=== PATIENT | male | born 1955 | race African-American/Black ===

== ENCOUNTER 2021-02-10 11:05 | Inpatient (IN) | payer OTHER ==
[~2021-02-10] VITALS: Ht 182.9 cm; Wt 160.6 kg
[2021-02-10] VITALS (24 sets, daily range): BP systolic 101–172; BP diastolic 62–130
[~2021-02-10 11:05] MED LIST: GLIPIZIDE; METFORMIN
[2021-02-10] MEDS ORDERED: SODIUM CHLORIDE 0.9% 1,000 ML IV ONE (11:15)
[2021-02-10] MEDS ORDERED: IPRATROPIUM BROMIDE (0.02%) 0.5MG/2.5ML NEB HHN STA (11:20)
[2021-02-10 11:45] LABS: HEMATOCRIT. 35.7 % (42.0-52.0); HEMOGLOBIN. 12.3 g/dL (14.0-18.0); MEAN CORPUSCULAR HEMOGLOBIN 33.6 pg (28.0-32.0); MEAN PLATELET VOLUME 7.8 fl (7.4-10.4); PLATELET 329 x1000/uL (130-400); RED BLOOD CELL COUNT 3.65 mill/uL (4.7-6.1); RED CELL DISTRIBUTION WIDTH 19.5 % (11.6-14.6)
[2021-02-10] MEDS ORDERED: LEVOFLOXACIN 750MG PREMIX 150 ML IV ONE (11:45)
[2021-02-10 11:47] LABS: CHLORIDE 98 mEq/L (98-107)
[2021-02-10 11:51] LABS: ETHANOL BLOOD < 10 mg/dL
[2021-02-10] MEDS ORDERED: ACETAMINOPHEN 650MG SUPP PR ONE (12:00)
[2021-02-10 12:29] LABS: PLATELET ESTIMATE NORMAL
[2021-02-10] MEDS ORDERED: SODIUM CHLORIDE 0.9% 1000ML BAG (SEPSIS BOLUS) IV ONE (13:30)
[2021-02-10 15:31] LABS: CLARITY URINE CLEAR (CLEAR); COLOR URINE YELLOW (YELLOW); KETONES URINE 1+ (NEGATIVE); LEUKOCYTE ESTERASE URINE NEGATIVE (NEGATIVE); NITRITE URINE NEGATIVE (NEGATIVE); OCCULT BLOOD URINE TRACE (NEGATIVE); PH URINE 6.5 (4.5-8.0); PROTEIN URINE 1+ (NEGATIVE); SPECIFIC GRAVITY URINE 1.023 (1.005-1.030)
[2021-02-10 15:46] LABS: *AMPHETAMINES SCREEN URINE NEGATIVE (NEGATIVE); *BARBITURATES SCREEN URINE NEGATIVE (NEGATIVE); *BENZODIAZEPINES SCREEN URINE NEGATIVE (NEGATIVE); *COCAINE SCREEN URINE NEGATIVE (NEGATIVE); CANNABINOID URINE SCREEN PRESUMTIVE POSITIVE (NEGATIVE); METHADONE URINE SCREEN NEGATIVE (NEGATIVE); OPIATES URINE SCREEN NEGATIVE (NEGATIVE); PHENCYCLIDINE URINE SCREEN NEGATIVE (NEGATIVE)
[2021-02-10 16:02] LABS: D-DIMER 9.2 mg/L FEU (<0.50); INR 1.2; PROTHROMBIN TIME 12.4 sec (9.6-11.0)
[2021-02-10] MEDS ORDERED: CLONIDINE 0.1MG TABLET PO PRN (16:15)
[2021-02-10] MEDS ORDERED: ENOXAPARIN 40MG/0.4ML SYR SUBCUT SCH (16:15)
[2021-02-10] MEDS ORDERED: ONDANSETRON HCL 4MG/2ML INJ IV PRN (16:15)
[2021-02-10] MEDS ORDERED: CEFTRIAXONE 1 G PREMIX 50 ML IV SCH (16:15)
[2021-02-10] MEDS ORDERED: LORAZEPAM 2MG/ML CPJ IV PRN (16:15)
[2021-02-10] MEDS ORDERED: HYDROMORPHONE HCL/PF 2MG/ML CPJ IV PRN (16:15)
[2021-02-10] MEDS ORDERED: GUAIFENESIN 200MG/10ML SUGAR FREE UDC PO PRN (16:15)
[2021-02-10] MEDS ORDERED: MAGNESIUM/ALUMINUM HYDROXIDE/SIMETHICONE 30ML UDC PO PRN (16:15)
[2021-02-10] MEDS ORDERED: DOCUSATE SODIUM 100MG CAPSULE PO PRN (16:15)
[2021-02-10] MEDS ORDERED: ACETAMINOPHEN 325MG TABLET PO PRN (16:15)
[2021-02-10 16:46] LABS: BG BASE EXCESS -5.9 mmol/L (-2.0-2.0); BG DEOXYHEMOGLOBIN 5.3 % (0.0-5.0); BG FRACTION INSPIRED OXYGEN 50; BG HCO3 ACT 17.6 mmol/L (22.0-26.0); BG METHEMOGLOBIN 0.2 % (0.0-1.5); BG OXYGEN SATURATION 94.7 % (92.0-98.5); BG OXYHEMOGLOBIN 94.5 % (94.0-97.0); BG PCO2 28.8 mmHg (35.0-45.0); BG PH 7.404 (7.350-7.450); BG PO2 75.8 mmHg (75.0-100.0); BG SAMPLE SITE LEFT RADIAL; BG VENT MODE MASK - BIPAP
[2021-02-10] MEDS ORDERED: CEFTRIAXONE 1,000 MG in DEXTROSE 5% WATER 50 ML IV SCH (18:00)
[2021-02-10] MEDS ORDERED: PHENYLEPHRINE 100 MG in DEXT 5% WATER 240 ML IV PRN (18:00)
[2021-02-10] MEDS ORDERED: SODIUM BICARBONATE 8.4% 1 MEQ/ML 50ML SYR IV NR (18:15)
[2021-02-10] MEDS: ENOXAPARIN 40MG/0.4ML SYR SUBCUT SCH (18:25)
[2021-02-10] MEDS: MIDAZOLAM HCL 100 MG in SODIUM CHLORIDE 0.9% 80 ML IV PRN (18:29)
[2021-02-10] MEDS: FENTANYL CITRATE/PF 2,500 MCG in SODIUM CHLORIDE 0.9% 200 ML IV PRN (18:30)
[2021-02-10] MEDS: METOPROLOL TARTRATE 5MG/5ML VIAL IV PRN (18:49)
[2021-02-10] MEDS ORDERED: SODIUM CHLORIDE 10% FOR INH 15ML VIAL NEB INH NR (19:00)
[2021-02-10 19:08] LABS: BG BASE EXCESS -3.6 mmol/L (-2.0-2.0); BG CARBOXYHEMOGLOBIN 0.3 % (0.5-1.5); BG DEOXYHEMOGLOBIN 0.5 % (0.0-5.0); BG FRACTION INSPIRED OXYGEN 100; BG HCO3 ACT 23.2 mmol/L (22.0-26.0); BG METHEMOGLOBIN 0.3 % (0.0-1.5); BG OXYGEN SATURATION 99.5 % (92.0-98.5); BG OXYHEMOGLOBIN 98.9 % (94.0-97.0); BG PCO2 49.1 mmHg (35.0-45.0); BG PH 7.292 (7.350-7.450); BG PO2 329.7 mmHg (75.0-100.0); BG SAMPLE SITE RIGHT BRACHIAL; BG TOTAL HEMOGLOBIN 12.3 g/dL (12.0-18.0); BG VENT MODE PRVC
[2021-02-10] MEDS ORDERED: DEXTROSE 50% WATER 50ML SYRINGE IV PRN (20:15)
[2021-02-10] MEDS: AMLODIPINE 10MG TABLET PO SCH (20:26)
[2021-02-10] MEDS ORDERED: BLOOD SUGAR DIAGNOSTIC STRIP TEST SCH (20:30)
[2021-02-10] MEDS ORDERED: INSULIN LISPRO 100 UNITS/ML SUBCUT SCH (21:00)
[2021-02-10] MEDS: AZITHROMYCIN 500 MG in DEXT 5% WATER 250 ML IV SCH (21:12)
[2021-02-10 23:34] LABS: CHLORIDE 101 mEq/L (98-107)
[2021-02-11] VITALS (88 sets, daily range): BP systolic 80–192; BP diastolic 39–111
[2021-02-11] MEDS: METOPROLOL TARTRATE 5MG/5ML VIAL IV PRN ×2 (01:27→10:10)
[2021-02-11] MEDS: MIDAZOLAM HCL 100 MG in SODIUM CHLORIDE 0.9% 80 ML IV PRN ×2 (01:28→12:25)
[2021-02-11] MEDS: INSULIN LISPRO 100 UNITS/ML SUBCUT SCH ×4 (01:40→17:51)
[2021-02-11] MEDS: FENTANYL CITRATE/PF 2,500 MCG in SODIUM CHLORIDE 0.9% 200 ML IV PRN ×3 (02:24→20:22)
[2021-02-11] MEDS ORDERED: IOHEXOL-350 100 ML BOTTLE ONE (03:39)
[2021-02-11] MEDS ORDERED: ACETAMINOPHEN 650MG/20.3ML UDC PO PRN (04:30)
[2021-02-11 05:52] LABS: HEMATOCRIT. 35.7 % (42.0-52.0); HEMOGLOBIN. 11.7 g/dL (14.0-18.0); MEAN CORPUSCULAR HEMOGLOBIN 33.3 pg (28.0-32.0); MEAN CORPUSCULAR VOLUME 101.9 fL (80.0-94.0); MEAN PLATELET VOLUME 7.7 fl (7.4-10.4); PLATELET 251 x1000/uL (130-400)
[2021-02-11 05:58] LABS: CHLORIDE 100 mEq/L (98-107)
[2021-02-11] MEDS: BLOOD SUGAR DIAGNOSTIC STRIP TEST SCH ×4 (06:00→17:46)
[2021-02-11 06:06] LABS: LDL CHOLESTEROL 82 mg/dL (5-100)
[2021-02-11 06:07] LABS: HDL CHOLESTEROL 20 mg/dL (40-59)
[2021-02-11 06:08] LABS: T4 FREE 1.05 ng/dL (0.76-1.46)
[2021-02-11] MEDS: ENOXAPARIN 40MG/0.4ML SYR SUBCUT SCH (06:39)
[2021-02-11] MEDS: AZITHROMYCIN 500 MG in DEXT 5% WATER 250 ML IV SCH (07:59)
[2021-02-11] MEDS: AMLODIPINE 10MG TABLET PO SCH (07:59)
[2021-02-11] MEDS: ASPIRIN 81MG EC TABLET PO SCH (08:00)
[2021-02-11 08:42] LABS: BG BASE EXCESS -4.8 mmol/L (-2.0-2.0); BG CARBOXYHEMOGLOBIN 0.3 % (0.5-1.5); BG DEOXYHEMOGLOBIN 5.6 % (0.0-5.0); BG FRACTION INSPIRED OXYGEN 100; BG HCO3 ACT 21.8 mmol/L (22.0-26.0); BG METHEMOGLOBIN 0.3 % (0.0-1.5); BG OXYGEN SATURATION 94.4 % (92.0-98.5); BG OXYHEMOGLOBIN 93.8 % (94.0-97.0); BG PCO2 46.8 mmHg (35.0-45.0); BG PH 7.286 (7.350-7.450); BG PO2 78.2 mmHg (75.0-100.0); BG SAMPLE SITE RIGHT RADIAL; BG TOTAL HEMOGLOBIN 11.8 g/dL (12.0-18.0); BG TOTAL RESPIRATORY RATE 24 b/min; BG VENT MODE VENT- PRVC
[2021-02-11] MEDS: IPRATROPIUM BROMIDE (0.02%) 0.5MG/2.5ML NEB HHN PRN ×2 (08:50→15:45)
[2021-02-11] MEDS ORDERED: SODIUM CHLORIDE 0.9% 500 ML IV ONE (10:45)
[2021-02-11] MEDS: DEXAMETHASONE 10 MG/ML VIAL IV SCH (11:51)
[2021-02-11] MEDS: PANTOPRAZOLE SODIUM 40 MG/VIAL IV SCH (12:23)
[2021-02-11] MEDS: CEFEPIME 2,000 MG in DEXT 5% WATER 100 ML IV SCH (12:23)
[2021-02-11] MEDS ORDERED: VANCOMYCIN 1500MG in DEXTROSE 5% WATER 250ML IV NR (13:00)
[2021-02-11 13:39] LABS: PLATELET ESTIMATE NORMAL
[2021-02-11] MEDS ORDERED: ENOXAPARIN 100MG/ML SYR SUBCUT NR (14:00)
[2021-02-11] MEDS: IPRATROPIUM BROMIDE (0.02%) 0.5MG/2.5ML NEB HHN SCH ×2 (14:31→21:02)
[2021-02-11] MEDS: ENOXAPARIN 150MG/ML SYR SUBCUT SCH (17:50)
[2021-02-11] MEDS: METOPROLOL TARTRATE 25MG TABLET PO SCH (21:00)
[2021-02-11] MEDS: VANCOMYCIN 1500MG in DEXTROSE 5% WATER 250ML IV SCH (21:11)
[2021-02-12] VITALS (93 sets, daily range): BP systolic 95–139; BP diastolic 57–97
[2021-02-12] MEDS: INSULIN LISPRO 100 UNITS/ML SUBCUT SCH ×4 (00:23→17:53)
[2021-02-12] MEDS: CEFEPIME 2,000 MG in DEXT 5% WATER 100 ML IV SCH ×2 (00:24→12:21)
[2021-02-12] MEDS: MIDAZOLAM HCL 100 MG in SODIUM CHLORIDE 0.9% 80 ML IV PRN ×2 (00:25→13:58)
[2021-02-12] MEDS ORDERED: VANCOMYCIN 1 G PREMIX 200 ML IV SCH (01:00)
[2021-02-12] MEDS: IPRATROPIUM BROMIDE (0.02%) 0.5MG/2.5ML NEB HHN SCH ×4 (02:35→20:30)
[2021-02-12 05:14] LABS: HEMATOCRIT. 29.1 % (42.0-52.0); HEMOGLOBIN. 9.8 g/dL (14.0-18.0); MEAN CORPUSCULAR HEMOGLOBIN 32.9 pg (28.0-32.0); MEAN CORPUSCULAR VOLUME 97.4 fL (80.0-94.0); MEAN PLATELET VOLUME 8.2 fl (7.4-10.4); PLATELET 257 x1000/uL (130-400); RED BLOOD CELL COUNT 2.99 mill/uL (4.7-6.1); RED CELL DISTRIBUTION WIDTH 19.3 % (11.6-14.6)
[2021-02-12 05:32] LABS: CHLORIDE 102 mEq/L (98-107)
[2021-02-12] MEDS: BLOOD SUGAR DIAGNOSTIC STRIP TEST SCH ×4 (06:00→17:48)
[2021-02-12] MEDS: ENOXAPARIN 150MG/ML SYR SUBCUT SCH ×2 (06:45→19:01)
[2021-02-12] MEDS: FENTANYL CITRATE/PF 2,500 MCG in SODIUM CHLORIDE 0.9% 200 ML IV PRN ×2 (06:46→21:39)
[2021-02-12] MEDS: DEXAMETHASONE 10 MG/ML VIAL IV SCH (08:14)
[2021-02-12] MEDS: PANTOPRAZOLE SODIUM 40 MG/VIAL IV SCH (08:14)
[2021-02-12] MEDS: AZITHROMYCIN 500 MG in DEXT 5% WATER 250 ML IV SCH (08:14)
[2021-02-12] MEDS: ASPIRIN 81MG EC TABLET PO SCH (08:15)
[2021-02-12] MEDS: METOPROLOL TARTRATE 25MG TABLET PO SCH ×2 (08:15→20:12)
[2021-02-12] MEDS: AMLODIPINE 10MG TABLET PO SCH (08:15)
[2021-02-12 09:23] LABS: BG BASE EXCESS -3.3 mmol/L (-2.0-2.0); BG CARBOXYHEMOGLOBIN 0.3 % (0.5-1.5); BG DEOXYHEMOGLOBIN 1.1 % (0.0-5.0); BG FRACTION INSPIRED OXYGEN 100; BG HCO3 ACT 22.5 mmol/L (22.0-26.0); BG METHEMOGLOBIN 0.2 % (0.0-1.5); BG OXYGEN SATURATION 98.9 % (92.0-98.5); BG OXYHEMOGLOBIN 98.4 % (94.0-97.0); BG PH 7.327 (7.350-7.450); BG SAMPLE SITE RIGHT RADIAL; BG TOTAL HEMOGLOBIN 9.7 g/dL (12.0-18.0); BG VENT MODE PRVC
[2021-02-12] MEDS: VANCOMYCIN 1500MG in DEXTROSE 5% WATER 250ML IV SCH (09:27)
[2021-02-12] MEDS ORDERED: PANTOPRAZOLE SODIUM 40 MG/VIAL IV ONE (11:45)
[2021-02-12] MEDS ORDERED: FUROSEMIDE 40MG/4ML VIAL IVP NR (11:45)
[2021-02-12 16:30] LABS: PLATELET ESTIMATE NORMAL
[2021-02-12] MEDS: DOCUSATE SODIUM SUGAR FREE 100MG/10ML UDC NG PRN (20:11)
[2021-02-13] VITALS (96 sets, daily range): BP systolic 97–133; BP diastolic 54–77
[2021-02-13] MEDS: CEFEPIME 2,000 MG in DEXT 5% WATER 100 ML IV SCH ×2 (00:03→11:59)
[2021-02-13] MEDS: INSULIN LISPRO 100 UNITS/ML SUBCUT SCH ×4 (00:21→19:00)
[2021-02-13] MEDS: IPRATROPIUM BROMIDE (0.02%) 0.5MG/2.5ML NEB HHN SCH ×4 (03:01→20:50)
[2021-02-13] MEDS: MIDAZOLAM HCL 100 MG in SODIUM CHLORIDE 0.9% 80 ML IV PRN ×2 (04:26→18:20)
[2021-02-13] MEDS: BLOOD SUGAR DIAGNOSTIC STRIP TEST SCH ×4 (06:00→18:35)
[2021-02-13] MEDS: ENOXAPARIN 150MG/ML SYR SUBCUT SCH ×2 (06:43→19:12)
[2021-02-13 08:54] LABS: BG BASE EXCESS -1.6 mmol/L (-2.0-2.0); BG CARBOXYHEMOGLOBIN 0.2 % (0.5-1.5); BG FRACTION INSPIRED OXYGEN 90; BG HCO3 ACT 23.1 mmol/L (22.0-26.0); BG METHEMOGLOBIN 0.6 % (0.0-1.5); BG OXYHEMOGLOBIN 98.2 % (94.0-97.0); BG PCO2 38.7 mmHg (35.0-45.0); BG PH 7.393 (7.350-7.450); BG PO2 202.2 mmHg (75.0-100.0); BG SAMPLE SITE RIGHT RADIAL; BG TOTAL HEMOGLOBIN 9.8 g/dL (12.0-18.0); BG VENT MODE VENT - AC
[2021-02-13] MEDS: ASPIRIN 81MG EC TABLET PO SCH (08:58)
[2021-02-13] MEDS: PANTOPRAZOLE SODIUM 40 MG/VIAL IV SCH (08:58)
[2021-02-13] MEDS: DEXAMETHASONE 10 MG/ML VIAL IV SCH (08:58)
[2021-02-13] MEDS: AZITHROMYCIN 500 MG in DEXT 5% WATER 250 ML IV SCH (08:58)
[2021-02-13] MEDS: METOPROLOL TARTRATE 25MG TABLET PO SCH ×2 (08:58→20:38)
[2021-02-13] MEDS ORDERED: FUROSEMIDE 40MG/4ML VIAL IVP NR (11:15)
[2021-02-13 11:19] LABS: HEMATOCRIT. 26.1 % (42.0-52.0); HEMOGLOBIN. 8.9 g/dL (14.0-18.0); MEAN CORPUSCULAR HEMOGLOBIN 33.7 pg (28.0-32.0); MEAN CORPUSCULAR VOLUME 98.4 fL (80.0-94.0); MEAN PLATELET VOLUME 8.3 fl (7.4-10.4); PLATELET 269 x1000/uL (130-400); RED BLOOD CELL COUNT 2.66 mill/uL (4.7-6.1); RED CELL DISTRIBUTION WIDTH 19.1 % (11.6-14.6)
[2021-02-13] MEDS: METOCLOPRAMIDE HCL 10MG/2ML VIAL IV SCH ×2 (12:00→18:20)
[2021-02-13] MEDS: INSULIN GLARGINE UD 100 UNITS/ML SYR SUBCUT SCH (12:00)
[2021-02-13 12:02] LABS: CHLORIDE 104 mEq/L (98-107)
[2021-02-13 14:52] LABS: PLATELET ESTIMATE NORMAL
[2021-02-13] MEDS: FENTANYL CITRATE/PF 2,500 MCG in SODIUM CHLORIDE 0.9% 200 ML IV PRN (16:50)
[2021-02-13] MEDS ORDERED: INSULIN LISPRO 100 UNITS/ML SUBCUT NR (18:50)
[2021-02-14] VITALS (95 sets, daily range): BP systolic 108–160; BP diastolic 54–97
[2021-02-14] MEDS: METOCLOPRAMIDE HCL 10MG/2ML VIAL IV SCH ×5 (00:26→23:46)
[2021-02-14] MEDS: CEFEPIME 2,000 MG in DEXT 5% WATER 100 ML IV SCH ×3 (00:26→23:45)
[2021-02-14] MEDS: BLOOD SUGAR DIAGNOSTIC STRIP TEST SCH ×5 (00:26→23:46)
[2021-02-14] MEDS: INSULIN LISPRO 100 UNITS/ML SUBCUT SCH ×5 (00:39→23:46)
[2021-02-14] MEDS: IPRATROPIUM BROMIDE (0.02%) 0.5MG/2.5ML NEB HHN SCH ×4 (02:16→20:29)
[2021-02-14] MEDS: ENOXAPARIN 150MG/ML SYR SUBCUT SCH ×2 (05:32→17:31)
[2021-02-14] MEDS: FENTANYL CITRATE/PF 2,500 MCG in SODIUM CHLORIDE 0.9% 200 ML IV PRN ×2 (05:53→21:10)
[2021-02-14] MEDS: METOPROLOL TARTRATE 25MG TABLET PO SCH ×2 (08:29→20:43)
[2021-02-14] MEDS: PANTOPRAZOLE SODIUM 40 MG/VIAL IV SCH (08:29)
[2021-02-14] MEDS: AZITHROMYCIN 500 MG in DEXT 5% WATER 250 ML IV SCH (08:30)
[2021-02-14 08:41] LABS: BG BASE EXCESS -2.3 mmol/L (-2.0-2.0); BG CARBOXYHEMOGLOBIN 0.3 % (0.5-1.5); BG DEOXYHEMOGLOBIN 1.1 % (0.0-5.0); BG FRACTION INSPIRED OXYGEN 60; BG HCO3 ACT 21.2 mmol/L (22.0-26.0); BG METHEMOGLOBIN 0.3 % (0.0-1.5); BG OXYGEN SATURATION 98.9 % (92.0-98.5); BG OXYHEMOGLOBIN 98.3 % (94.0-97.0); BG PCO2 31.8 mmHg (35.0-45.0); BG PH 7.442 (7.350-7.450); BG SAMPLE SITE RIGHT RADIAL; BG TOTAL HEMOGLOBIN 9.8 g/dL (12.0-18.0); BG VENT MODE VENT - AC
[2021-02-14] MEDS: INSULIN GLARGINE UD 100 UNITS/ML SYR SUBCUT SCH (09:22)
[2021-02-14 10:13] LABS: HEMATOCRIT. 28.3 % (42.0-52.0); HEMOGLOBIN. 9.5 g/dL (14.0-18.0); MEAN CORPUSCULAR HEMOGLOBIN 33.3 pg (28.0-32.0); MEAN CORPUSCULAR VOLUME 99.2 fL (80.0-94.0); PLATELET 293 x1000/uL (130-400); RED BLOOD CELL COUNT 2.86 mill/uL (4.7-6.1); RED CELL DISTRIBUTION WIDTH 19.3 % (11.6-14.6)
[2021-02-14] MEDS ORDERED: FLUMAZENIL 0.1 MG/ML 5ML VIAL IV ONE (10:15)
[2021-02-14 10:19] LABS: CHLORIDE 108 mEq/L (98-107)
[2021-02-14] MEDS: PROPOFOL 10MG/ML 100ML 100 ML IV PRN ×2 (10:59→23:46)
[2021-02-14 13:11] LABS: PLATELET ESTIMATE NORMAL
[2021-02-14] MEDS: DOCUSATE SODIUM SUGAR FREE 100MG/10ML UDC NG PRN (17:40)
[2021-02-14] MEDS: METOPROLOL TARTRATE 5MG/5ML VIAL IV PRN (19:12)
[2021-02-14] MEDS ORDERED: AMIODARONE HCL 900 MG in DEXT 5% WATER 482 ML IV PRN (20:00)
[2021-02-15] VITALS (97 sets, daily range): BP systolic 93–158; BP diastolic 41–104
[2021-02-15] MEDS: METOPROLOL TARTRATE 5MG/5ML VIAL IV PRN ×2 (00:17→07:16)
[2021-02-15] MEDS: IPRATROPIUM BROMIDE (0.02%) 0.5MG/2.5ML NEB HHN SCH ×4 (01:49→20:20)
[2021-02-15] MEDS: ENOXAPARIN 150MG/ML SYR SUBCUT SCH ×2 (05:13→18:06)
[2021-02-15] MEDS: METOCLOPRAMIDE HCL 10MG/2ML VIAL IV SCH ×3 (05:14→18:02)
[2021-02-15] MEDS: INSULIN LISPRO 100 UNITS/ML SUBCUT SCH ×3 (05:14→18:02)
[2021-02-15] MEDS: BLOOD SUGAR DIAGNOSTIC STRIP TEST SCH ×3 (05:14→18:00)
[2021-02-15] MEDS: PROPOFOL 10MG/ML 100ML 100 ML IV PRN ×8 (06:20→23:53)
[2021-02-15] MEDS ORDERED: LORAZEPAM 2MG/ML CPJ IV NR (08:00)
[2021-02-15 08:05] LABS: BG BASE EXCESS -2.4 mmol/L (-2.0-2.0); BG CARBOXYHEMOGLOBIN 0.1 % (0.5-1.5); BG DEOXYHEMOGLOBIN 9.5 % (0.0-5.0); BG FRACTION INSPIRED OXYGEN 40; BG HCO3 ACT 24.5 mmol/L (22.0-26.0); BG METHEMOGLOBIN 0.2 % (0.0-1.5); BG OXYGEN SATURATION 90.5 % (92.0-98.5); BG OXYHEMOGLOBIN 90.2 % (94.0-97.0); BG PCO2 51.1 mmHg (35.0-45.0); BG PH 7.298 (7.350-7.450); BG PO2 63.5 mmHg (75.0-100.0); BG SAMPLE SITE RIGHT RADIAL; BG TOTAL HEMOGLOBIN 11.9 g/dL (12.0-18.0); BG TOTAL RESPIRATORY RATE 32 b/min; BG VENT MODE VENT - AC
[2021-02-15] MEDS: PANTOPRAZOLE SODIUM 40 MG/VIAL IV SCH (09:12)
[2021-02-15] MEDS: METOPROLOL TARTRATE 25MG TABLET PO SCH ×2 (09:13→21:00)
[2021-02-15] MEDS: INSULIN GLARGINE UD 100 UNITS/ML SYR SUBCUT SCH (09:53)
[2021-02-15] MEDS: FENTANYL CITRATE/PF 2,500 MCG in SODIUM CHLORIDE 0.9% 200 ML IV PRN ×2 (10:38→22:17)
[2021-02-15] MEDS: CEFEPIME 2,000 MG in DEXT 5% WATER 100 ML IV SCH (11:49)
[2021-02-15 17:41] LABS: HEMATOCRIT. 30.2 % (42.0-52.0); HEMOGLOBIN. 10.1 g/dL (14.0-18.0); MEAN CORPUSCULAR HEMOGLOBIN 33.2 pg (28.0-32.0); MEAN CORPUSCULAR VOLUME 99.1 fL (80.0-94.0); MEAN PLATELET VOLUME 8.1 fl (7.4-10.4); PLATELET 288 x1000/uL (130-400); RED BLOOD CELL COUNT 3.05 mill/uL (4.7-6.1)
[2021-02-15 17:50] LABS: CHLORIDE 110 mEq/L (98-107)
[2021-02-15 18:22] LABS: NUCLEATED RED BLOOD CELLS 1 /100 WBC; PLATELET ESTIMATE NORMAL
[2021-02-16] VITALS (85 sets, daily range): BP systolic 94–153; BP diastolic 39–96
[2021-02-16] MEDS: METOCLOPRAMIDE HCL 10MG/2ML VIAL IV SCH ×4 (00:03→17:45)
[2021-02-16] MEDS: CEFEPIME 2,000 MG in DEXT 5% WATER 100 ML IV SCH ×2 (00:03→12:48)
[2021-02-16] MEDS: BLOOD SUGAR DIAGNOSTIC STRIP TEST SCH ×4 (00:03→17:37)
[2021-02-16] MEDS: INSULIN LISPRO 100 UNITS/ML SUBCUT SCH ×4 (00:04→17:48)
[2021-02-16] MEDS: PROPOFOL 10MG/ML 100ML 100 ML IV PRN ×3 (01:57→07:19)
[2021-02-16] MEDS: IPRATROPIUM BROMIDE (0.02%) 0.5MG/2.5ML NEB HHN SCH ×4 (02:17→20:04)
[2021-02-16] MEDS: ENOXAPARIN 150MG/ML SYR SUBCUT SCH ×2 (05:18→17:45)
[2021-02-16] MEDS ORDERED: AMIODARONE HCL 200 MG TABLET PO SCH (09:00)
[2021-02-16] MEDS: PANTOPRAZOLE SODIUM 40 MG/VIAL IV SCH (09:00)
[2021-02-16] MEDS: METOPROLOL TARTRATE 25MG TABLET PO SCH (09:00)
[2021-02-16] MEDS: DOCUSATE SODIUM SUGAR FREE 100MG/10ML UDC NG PRN (09:00)
[2021-02-16 09:06] LABS: BG BASE EXCESS 1.1 mmol/L (-2.0-2.0); BG CARBOXYHEMOGLOBIN 0.3 % (0.5-1.5); BG DEOXYHEMOGLOBIN 2.1 % (0.0-5.0); BG FRACTION INSPIRED OXYGEN 50; BG HCO3 ACT 27.7 mmol/L (22.0-26.0); BG METHEMOGLOBIN 0.2 % (0.0-1.5); BG OXYGEN SATURATION 97.9 % (92.0-98.5); BG OXYHEMOGLOBIN 97.4 % (94.0-97.0); BG PCO2 53.2 mmHg (35.0-45.0); BG PH 7.334 (7.350-7.450); BG PO2 108.2 mmHg (75.0-100.0); BG SAMPLE SITE LEFT RADIAL; BG VENT MODE VENT - AC
[2021-02-16] MEDS ORDERED: MIDAZOLAM HCL 100 MG in SODIUM CHLORIDE 0.9% 80 ML IV PRN (09:15)
[2021-02-16] MEDS: INSULIN GLARGINE UD 100 UNITS/ML SYR SUBCUT SCH (09:44)
[2021-02-16] MEDS: FENTANYL CITRATE/PF 2,500 MCG in SODIUM CHLORIDE 0.9% 200 ML IV PRN ×2 (10:17→19:59)
== END 2021-02-16 21:45 | disposition short-term general hospital (02) | DRG 870 ==
LOC: ER 11:05 → EDBEDREQSVC 11:19 → EDBEDREQ 11:19 → 3WST 12:01 → EDBEDREQ 12:23 → EDBEDREQTM 12:23 → ENRESERV 14:42 → MICUSO 17:53 → MICUNO 02-15 16:38
PROVIDERS: ADMIT Hospitalist; ATTEND Hospitalist
PROC: 5A1955Z Respiratory Ventilation, Greater than 96 Consecutive Hours (ICD-10-PCS; principal; 2021-02-10)
PROC: 0BH17EZ Insertion of Endotracheal Airway into Trachea, Via Natural or Artificial Opening (ICD-10-PCS; 2021-02-10)
PROC: 05HY33Z Insertion of Infusion Device into Upper Vein, Percutaneous Approach (ICD-10-PCS; 2021-02-10)
PROC: B54MZZA Ultrasonography of Right Upper Extremity Veins, Guidance (ICD-10-PCS; 2021-02-10)
PROC: 5A09357 Assistance with Respiratory Ventilation, Less than 24 Consecutive Hours, Continuous Positive Airway Pressure (ICD-10-PCS; 2021-02-10)
DX: A41.9 Sepsis, unspecified organism (principal); E43 Unspecified severe protein-calorie malnutrition; I26.99 Other pulmonary embolism without acute cor pulmonale; J18.9 Pneumonia, unspecified organism; J96.01 Acute respiratory failure with hypoxia; J96.02 Acute respiratory failure with hypercapnia; E87.1 Hypo-osmolality and hyponatremia; I47.1 Supraventricular tachycardia; I82.511 Chronic embolism and thrombosis of right femoral vein; Z68.42 Body mass index [BMI] 45.0-49.9, adult; D50.9 Iron deficiency anemia, unspecified; E11.65 Type 2 diabetes mellitus with hyperglycemia; E66.01 Morbid (severe) obesity due to excess calories; E78.5 Hyperlipidemia, unspecified; I10 Essential (primary) hypertension; K76.0 Fatty (change of) liver, not elsewhere classified; R65.20 Severe sepsis without septic shock; I48.0 Paroxysmal atrial fibrillation; Z20.822 Contact with and (suspected) exposure to COVID-19; Z78.1 Physical restraint status; Z79.899 Other long term (current) drug therapy; Z79.01 Long term (current) use of anticoagulants
CPT/HCPCS: 31500; 36415; 36600; 71045; 71275; 76937; 80048; 80053; 80061; 80202; 80305; 80320; 81003; 82010; 82375; 82805; 82962; 83036; 83605; 83735; 83880; 83930; 83935; 84145; 84439; 84443; 84478; 84484; 85025; 85379; 87070; 87426; 87804; 93005; 93306; 93970; 94002; 94003; 94640; 94660; 99291; A6261; C1725; C9113; J0456; J0692; J0696; J1100; J1650; J1815; J1940; J1956; J2060; J2250; J2704; J2765; J3010; J3370; J3490; J7030; J7040; J7050; J7060; J7131; Q9967; U0003; U0005; A4315; G0480